=== PATIENT | female | born 1995 | race Two or more races ===

== ENCOUNTER 2016-10-24 09:33 | Emergency (ER) | payer MEDICAID ==
[~2016-10-24] VITALS: Ht 160 cm; Wt 89.2 kg
[2016-10-24] MEDS ORDERED: ALBUTEROL SULFATE 2.5 MG/3 ML NPPB ONE (11:30)
[2016-10-24] MEDS ORDERED: ALBUTEROL SULFATE 2.5 MG/3 ML ONE (12:49)
[2016-10-24 13:35] VITALS: BP 128/78
== END 2016-10-24 13:44 | disposition home or self-care (01) ==
LOC: ED 12:25
DX: J45.31 Mild persistent asthma with (acute) exacerbation (principal)
CPT/HCPCS: 71020; 93005; 94640; 99284; J7512; J7613

== ENCOUNTER 2016-11-01 12:40 | Emergency (ER) | payer MEDICAID ==
[~2016-11-01] VITALS: Ht 160 cm; Wt 89.9 kg
[2016-11-01 12:41] VITALS: BP 134/81
[2016-11-01] MEDS ORDERED: ALBUTEROL/IPRATROPIUM 2.5MG/0.5MG, 3 ML NPPB ONE (13:00)
[2016-11-01] MEDS ORDERED: ALBUTEROL/IPRATROPIUM 2.5MG/0.5MG, 3 ML ONE (13:21)
== END 2016-11-01 13:52 | disposition home or self-care (01) ==
LOC: ED 13:35
DX: J45.901 Unspecified asthma with (acute) exacerbation (principal); J20.9 Acute bronchitis, unspecified
CPT/HCPCS: 36415; 71020; 85379; 93005; 94640; J7620